=== PATIENT | female | born 1970 | race Caucasian/White ===

== ENCOUNTER → 2024-11-05 08:26 | Outpatient (REF) | payer OTHER, SELFPAY | LOC: RAD 08:26 | PROVIDERS: ATTENDING PHYSICIAN Student in an Organized Health Care Education/Training Program; FAMILY PHYSICIAN Family Medicine | DX: M25.529 Pain in unspecified elbow (principal); M25.579 Pain in unspecified ankle and joints of unspecified foot; M25.549 Pain in joints of unspecified hand | CPT/HCPCS: 76882 ==